=== PATIENT | male | born 1945 | race Caucasian/White ===

== ENCOUNTER 2023-09-20 09:50 | Day surgery (SDC) | payer MEDICARE, SELFPAY ==
[2023-09-18 13:44] VITALS: BMI 23.4
--- NOTE | 2023-09-19 10:20 | P.CONAN_ITS ---
HPI - Anesthesia Eval Consult details Narrative: 77yo M for Upper Endoscopy and Colonoscopy Eliquis for afib [facility] Past Medical History Medical History (Updated 09/18/23 @ 14:10 by Britney Parker RN) Osteoarthritis Elevated cholesterol HTN (hypertension) Atrial fibrillation History of cardioversion Barretts esophagus Surgical History Surgical History (Updated 09/20/23 @ 10:32 by Loretta Avelar RN) History of rectal surgery Hx of hand surgery History of back surgery Hx of total hip arthroplasty H/O colonoscopy History of esophagogastroduodenoscopy (EGD) Social History Social History (Updated 09/18/23 @ 13:44 by Britney Parker RN) Patient Tobacco Use Status: Former Tobacco user Tobacco use type: Cigarette Use of substances other than those prescribed or required for medical reasons: No Are you DNR?: No Advance Directives: No Advance Directives Information Provided: Yes Meds Allergies Allergy/AdvReac Type Severity Reaction Status Date / Time chocolate AdvReac Unknown Verified 09/20/23 10:31 [place] [employer] AdvReac Unknown Verified 09/20/23 10:31 nut - unspecified AdvReac Unknown Verified 09/20/23 10:31 Home Medications Medication Instructions Recorded Confirmed Last Taken Type acetaminophen 325 mg tablet 650 mg PO Q6H 09/18/23 09/18/23 Unknown History amlodipine 10 mg tablet 10 mg PO DAILY 09/18/23 09/18/23 09/20/23 History apixaban 5 mg tablet (Eliquis) 5 mg PO BID 09/18/23 09/18/23 09/16/23 History atorvastatin 20 mg tablet 20 mg PO DAILY 09/18/23 09/18/23 09/20/23 History dronedarone 400 mg tablet (Multaq) 400 mg PO BID 09/18/23 09/18/23 09/20/23 History fluticasone propionate 50 2 spray intranasal DAILY 09/18/23 09/18/23 Unknown History mcg/actuation nasal spray,suspension hydrochlorothiazide 12.5 mg capsule 12.5 mg PO DAILY 09/18/23 09/18/23 Unknown History metoprolol tartrate 25 mg tablet 25 mg PO BID 09/18/23 09/18/23 09/20/23 History omeprazole 20 mg capsule,delayed 20 mg PO DAILY 09/18/23 09/18/23 09/20/23 History release psyllium husk 3.4 gram/5.4 gram 1 tbsp PO DAILY 09/18/23 09/18/23 Unknown History oral powder (Metamucil) Exam Height,Weight and Vital Signs: Height 5 ft 10 in Weight 73.936 kg Assessment and Plan Assessment Anesthesia Assessment: Chart Reviewed
--- NOTE | 2023-09-20 10:31 | HO.ANESPROP2 ---
[facility] Past Medical History Medical History (Updated 09/18/23 @ 14:10 by Britney Parker RN) Osteoarthritis Elevated cholesterol HTN (hypertension) Atrial fibrillation History of cardioversion Barretts esophagus Functional capacity: independent ambulation Family History Family history of problems with anesthesia: No Surgical History Surgical History (Updated 09/20/23 @ 10:32 by Loretta Avelar RN) History of rectal surgery Hx of hand surgery History of back surgery Hx of total hip arthroplasty H/O colonoscopy History of esophagogastroduodenoscopy (EGD) History of Problems with Anesthesia: No Social History Social History (Updated 09/18/23 @ 13:44 by Britney Parker RN) Patient Tobacco Use Status: Former Tobacco user Tobacco use type: Cigarette Meds Allergies Allergy/AdvReac Type Severity Reaction Status Date / Time chocolate AdvReac Unknown Verified 09/20/23 10:31 [place] [employer] AdvReac Unknown Verified 09/20/23 10:31 nut - unspecified AdvReac Unknown Verified 09/20/23 10:31 Active Medications: Current Medications Lactated Ringer's (Lr) 1,000 mls @ 100 mls/hr IVCONT .Q10H EULALIA Home Medications Medication Instructions Recorded Confirmed Last Taken Type acetaminophen 325 mg tablet 650 mg PO Q6H 09/18/23 09/18/23 Unknown History amlodipine 10 mg tablet 10 mg PO DAILY 09/18/23 09/18/23 09/20/23 History apixaban 5 mg tablet (Eliquis) 5 mg PO BID 09/18/23 09/18/23 09/16/23 History atorvastatin 20 mg tablet 20 mg PO DAILY 09/18/23 09/18/23 09/20/23 History dronedarone 400 mg tablet (Multaq) 400 mg PO BID 09/18/23 09/18/23 09/20/23 History fluticasone propionate 50 2 spray intranasal DAILY 09/18/23 09/18/23 Unknown History mcg/actuation nasal spray,suspension hydrochlorothiazide 12.5 mg capsule 12.5 mg PO DAILY 09/18/23 09/18/23 Unknown History metoprolol tartrate 25 mg tablet 25 mg PO BID 09/18/23 09/18/23 09/20/23 History omeprazole 20 mg capsule,delayed 20 mg PO DAILY 09/18/23 09/18/23 09/20/23 History release psyllium husk 3.4 gram/5.4 gram 1 tbsp PO DAILY 09/18/23 09/18/23 Unknown History oral powder (Metamucil) Exam Height,Weight and Vital Signs: Height 5 ft 10 in Weight 73.936 kg Airway Mallampati Class: II TM Dist: >3cm Neck ROM: Full Heart: rrr Lungs: cta b/l Assessment and Plan Assessment Anesthesia Assessment: Anesthesia Plan Discussed and Chart Reviewed Final Anesthetic Review Family History of Problems with Anesthesia: No History of Problems with Anesthesia: No NPO: Yes ASA Class: III Final Preanesthetic Review: No Changes in Pt Med Stat, Meds/Allgs Chart Reviewed, Consent Obtained/Reviewed and Anes Risks/Benef Reviewed Patient Risk: Intermediate Procedure Risk: Intermediate Anesthetic Plan Anesthetic Plan: MAC: Disposition: Standard PACU
[2023-09-20 10:32] VITALS: BMI 23.3
[2023-09-20 10:47] VITALS: BP 119/67; PULSE 53; RESP 16; TEMP 36.6; O2SAT 97
[2023-09-20] MEDS: Lactated Ringers 1,000 ML 100 ML IVCONT (10:53)
--- NOTE | 2023-09-20 10:57 | MHC.SHP ---
Pre-Procedural Eval Section A - 24 Hr Update-Section A only Date of Service: 09/20/23 Section B - Complete if H&P > 30 days Chief Complaint: Encounter for screening for malignant neoplasm of Details of Present Illness: see H&P no changes Relevant Family History (Specify if Yes): No Relevant Social History: None Present Medications: see Short Stay Collaborative assessment Medical History: No relevant PMH History of Previous Operations: No relevant previous surgery Allergies: Allergies Allergy/AdvReac Type Severity Reaction Status Date / Time chocolate AdvReac Unknown Verified 09/20/23 10:31 [place] [employer] AdvReac Unknown Verified 09/20/23 10:31 nut - unspecified AdvReac Unknown Verified 09/20/23 10:31 Review of Systems Sugical H&P ROS: Negative: Constitution, Cardiovascular, Respiratory, Neurological, Psychiatric, Hem-Onc, Allergic/Immunologic, Gastrointestinal, Genitourinary, Musculoskeletal, Integumentary, Endocrine and Eyes/Ears/Nose/Throat Exam Surgical H&P Exam: Normal: HEENT, Normal: Heart, Normal: Lungs, Normal: Extremities, Normal: Abdomen, Normal: Skin and Normal: Neurological Plan Diagnosis/Plan: Unchanged I have reviewed the history and physical and performed a pertinent physical examination on my patient. No changes have occurred unless specified. Time Spent With Patient Time: Total time managing care of this patient today ____ minutes.
[2023-09-20 11:42] VITALS: BP 95/52; PULSE 48; RESP 16; TEMP 36.6; O2SAT 99
[2023-09-20 11:57] VITALS: BP 125/63; PULSE 48; RESP 16; TEMP 36.6; O2SAT 98
--- NOTE | 2023-09-20 12:18 | OP_ITS ---
DATE OF SERVICE: 09/20/2023 SURGEON: Brad Jones MD INDICATIONS: 1. Bola[place] esophagus. 2. Colon cancer screening and prior history of colon polyps. PREOPERATIVE DIAGNOSIS: POSTOPERATIVE DIAGNOSIS: PROCEDURE PERFORMED: Upper endoscopy with biopsy, colonoscopy to the terminal ileum. ESTIMATED BLOOD LOSS: COMPLICATIONS: ANESTHESIA: Monitored anesthesia care. ASSISTANTS: SPECIMENS: DESCRIPTION OF PROCEDURE: A history and physical was performed. The risks and benefits of the procedure were explained to the patient. Informed consent was obtained. The patient was placed in the left lateral decubitus position. The Olympus video gastroscope was introduced into the esophagus, stomach, and duodenum. Examination was performed. The scope was removed. He was repositioned for colonoscopy. A digital rectal exam was performed and was found to be normal. The Olympus pediatric video colonoscope was introduced into the rectum and advanced to the cecum. The cecum was identified by transillumination, palpation, and identification of ileocecal valve. Examination was performed. The scope was removed. He tolerated both procedures well and was returned to the recovery area in stable condition. FINDINGS: Upper endoscopy: 1. Esophagus: The esophagus showed a 2 cm length of Bolaños esophagus extending from the EG junction at 40 cm to 38 cm. There were no raised lesions or ulcerated areas. Biopsies were obtained in all 4 quadrants every 2 cm. 2. Stomach: The stomach was normal. There were several benign-appearing gastric polyps, which were not biopsied. These were present in the body and fundus consistent with fundic gland polyps, all measured less than 10 mm. 3. Duodenum: The bulb and 2nd portion were normal. Colonoscopy: The terminal ileum was normal. The visualized colonic mucosa was normal. There was some liquid stool coating the mucosa, which limited sensitivity examination. This was washed and suctioned. No polyps were identified. There was mild sigmoid diverticulosis. Retroflexed examination showed some internal hemorrhoids that were small. IMPRESSION: 1. [place] esophagus. 2. Normal colonoscopy. RECOMMENDATION: 1. Follow up the biopsy results. 2. Further colon cancer screening is not necessary based on age. MD TERRELL Cotto/DESIRE / [id number]
== END 2023-09-20 12:25 | disposition home or self-care (01) ==
PROVIDERS: PCP Internal Medicine; Visit Provider Internal Medicine Gastroenterology
PROC: (CPT 43239; principal; 2023-09-20 11:00)
DX: K22.70 Barrett's esophagus without dysplasia (principal); Z12.11 Encounter for screening for malignant neoplasm of colon; Z86.010 Personal history of colon polyps; I48.91 Unspecified atrial fibrillation; I10 Essential (primary) hypertension; E78.5 Hyperlipidemia, unspecified; Z87.891 Personal history of nicotine dependence; Z79.01 Long term (current) use of anticoagulants; Z79.02 Long term (current) use of antithrombotics/antiplatelets; Z79.899 Other long term (current) drug therapy
CPT/HCPCS: 43239; G0105; 88305; 88313; J1596; J2704